=== PATIENT | female | born 2000 | race Hispanic/Latino ===

== ENCOUNTER 2024-03-28 21:16 | Emergency (ER) | payer BC, MEDICAID, OTHER ==
[~2024-03-28] VITALS: Ht 167.6 cm; Wt 124.7 kg
[2024-03-28 21:55] LABS: BASOPHILS # (AUTO) 0.06 K/uL (0.00-0.20); BASOPHILS % (AUTO) 0.6 % (0.0-5.0); EOSINOPHILS # (AUTO) 0.17 K/uL (0.00-0.70); EOSINOPHILS % (AUTO) 1.8 % (0.0-8.0); HEMATOCRIT 40.1 % (36-48); IMMATURE GRANULOCYTE ABSOLUTE 0.02 K/uL (0-1); LYMPHOCYTES # (AUTO) 4.1 K/uL (1.0-4.8); LYMPHOCYTES % (AUTO) 42.8 % (21.0-51.0); MEAN CORPUSCULAR HEMOGLOBIN 29.1 pg (27.0-33.0); MEAN CORPUSCULAR HGB CONC 32.9 g/dL (32.0-36.0); MEAN CORPUSCULAR VOLUME 88.5 fL (79-99); MONOCYTES # (AUTO) 0.9 K/uL (0.1-1.0); MONOCYTES % (AUTO) 9.4 % (3.0-13.0); NEUTROPHILS # (AUTO) 4.3 K/uL (1.8-7.7); NEUTROPHILS % (AUTO) 45.2 % (40.0-77.0); PLATELET COUNT (AUTO) 276 K/uL (130-400); RED BLOOD CELL COUNT(AUTO) 4.53 MIL/uL (4.00-5.50); WHITE BLOOD COUNT (AUTO) 9.5 K/uL (4.8-10.8)
[2024-03-28 22:04] LABS: POTASSIUM 4.5 mmol/L (3.5-5.1)
[2024-03-28 22:08] LABS: ALBUMIN 3.5 g/dL (3.5-5.0); BILIRUBIN,DIRECT 0.1 mg/dL (0.0-0.3); BILIRUBIN,TOTAL 0.3 mg/dL (0.2-1.0); TOTAL PROTEIN, SERUM 7.3 g/dL (6.0-8.3)
--- NOTE | 2024-03-28 22:12 | ERN ---
ED Note History of Present Illness Stated Complaint: CONSTIPATION AND STOMACH PAIN FOR 5 DAYS Time Seen by MD: 21:19 Time Seen by Midlevel: 21:19 Dictation: The patient is a 23-year-old female with no past medical history who presents to the emergency department with complaints of generalized abdominal pain, constipation for five days. Patient reports she had an episode of nonbloody vomiting last week but has not vomited since. Denies any fevers, nausea. Patient reports she took magnesium citrate and stool softeners with no relief. Last bowel movement was five days ago. Allergies: Coded Allergies: No Known Drug Allergies (Unverified Allergy, Unknown, 03/29/24) Home Meds Active Scripts Lactulose (Lactulose) 10 Gram/15 Ml Solution, 30 ML PO DAILY for constipation, #900 ML 0 Refills Prov:DASHИРИНА SAMANOLEN [facility] 03/29/24 Nitrofurantoin Monohyd/M-Cryst (Macrobid 100 mg Capsule) 100 Mg Capsule, 1 CAP PO BID for 5 Days, #10 CAP 0 Refills Prov:TRINA DASH [facility] 03/29/24 Past Medical History RN Note Reviewed/Agreed w/PFSH: Yes Review of System Dictation Constitutional: Negative for fever,chills, and weight loss Eyes: Negative for injury, pain,redness, and discharge ENT: Negative for injury,pain or swelling Cardiovascular: Negative for chest pain, palpitations, and edema Respiratory: Negative for shortness of breath, cough, and wheezing, Abdomen/GI: Negative for nausea, vomiting, diarrhea, positive for abdominal pain, constipation Back: Negative for injury and pain : Negative for injury, bleeding and discharge MS/Extremity: Negative for injury and deformity Skin: Negative for rash, and discoloration Neuro: Negative for headache, weakness, numbness, tingling, and seizure Psych: Negative for suicide ideation, homicidal ideation, and hallucinations Initial Vital Sign VS Vital Signs Date Time Temp Pulse Resp B/P (MAP) Pulse Ox O2 Delivery O2 Flow Rate FiO2 03/28/24 22:16 97.3 53 20 143/82 100 Room Air 03/29/24 00:27 0 21 Physical Exam Dictation Vital Signs reviewed General Appearance: Alert, oriented x 3, no acute distress, well developed, nourished. Head and Face: non-traumatic. Eyes: PERRL, pink conjunctivas, eyelid no trauma, anterior chamber with arcus senilis. Ears: Pinnas intact and no signs of trauma or erythema ear canals clear and no discharge TM no erythema Nose: No discharge, no bleeding. Oropharynx: Mouth normal, tongue pink. pharynx clear,no erythema, tonsils no exudates, no abscesses noted, mucous membrane moist Neck: Supple, non-tender, no thyromegaly, no masses, no JVD, no bruits Breast:Deferred Chest:No tenderness, no crepitus, no paradoxical movement, no retractions Lungs:Clear, well-ventilated, symmetric, no rales, no wheezing, no rhonchi, no stridor, good breath sounds bilaterally Heart: Regular rate, regular rhythm, no murmur, no gallops Vascular: no peripheral edema, Abdomen: Soft, positive bowel sounds, nondistended, no guarding, nontender, no rebound, no masses no hepatomegaly, no splenomegaly, no Son's sign, no hernias. Rectal: Deferred Genital: Deferred Neurological: Normal speech, motor function intact, sensory function intact Musculoskeletal: Neck nontender, full range of motion, back nontender, full range of motion, Extremities: nontender, full range of motion Skin: Color pink, dry, no turgor, no rash, no lacerations, no abrasions, no contusions. Lymphatic: Deferred Results (Laboratory/Radiology) Laboratory/Radiology Laboratory Tests Test 03/28/24 21:46 03/28/24 22:18 White Blood Count 9.5 K/uL (4.8-10.8) Red Blood Count 4.53 MIL/uL (4.00-5.50) Hemoglobin 13.2 g/dL (12.0-16.0) Hematocrit 40.1 % (36-48) Mean Corpuscular Volume 88.5 fL (79-99) Mean Corpuscular Hemoglobin 29.1 pg (27.0-33.0) Mean Corpuscular Hemoglobin Concent 32.9 g/dL (32.0-36.0) Red Cell Distribution Width 13.0 % (11.0-15.5) Platelet Count 276 K/uL (130-400) Mean Platelet Volume 10.4 fL (7.5-10.5) Immature Granulocyte % (Auto) 0.2 % (0-1) Neutrophils (%) (Auto) 45.2 % (40.0-77.0) Lymphocytes (%) (Auto) 42.8 % (21.0-51.0) Monocytes (%) (Auto) 9.4 % (3.0-13.0) Eosinophils (%) (Auto) 1.8 % (0.0-8.0) Basophils (%) (Auto) 0.6 % (0.0-5.0) Neutrophils # (Auto) 4.3 K/uL (1.8-7.7) Lymphocytes # (Auto) 4.1 K/uL (1.0-4.8) Monocytes # (Auto) 0.9 K/uL (0.1-1.0) Eosinophils # (Auto) 0.17 K/uL (0.00-0.70) Basophils # (Auto) 0.06 K/uL (0.00-0.20) Absolute Immature Granulocyte (auto 0.02 K/uL (0-1) Nucleated Red Blood Cells 0.0 % (0.0-0.19) Sodium Level 138 mmol/L (136-145) Potassium Level 4.5 mmol/L (3.5-5.1) Chloride Level 103 mmol/L (101-111) Carbon Dioxide Level 31 mmol/L (21-32) Blood Urea Nitrogen 16 mg/dL (7-18) Creatinine 1.0 mg/dL (0.5-1.0) Glomerular Filtration Rate Calc 81 mL/min (>90) Random Glucose 83 mg/dL (70-105) Total Calcium 8.7 mg/dL (8.5-10.1) Total Bilirubin 0.3 mg/dL (0.2-1.0) Direct Bilirubin 0.1 mg/dL (0.0-0.3) Aspartate Amino Transf (AST/SGOT) 10 U/L (10-37) Alanine Aminotransferase (ALT/SGPT) 20 U/L (12-78) Alkaline Phosphatase 68 U/L (50-136) Total Protein 7.3 g/dL (6.0-8.3) Albumin 3.5 g/dL (3.5-5.0) Lipase 61 U/L (16-77) Serum Test, Qualitative NEGATIVE (NEGATIVE) Urine Color YELLOW (YELLOW) Urine Appearance CLOUDY (CLEAR) H Urine pH 6.0 (5.0-8.0) Urine Specific [place] 1.042 (1.001-1.031) Urine Protein 30 mg/dL (NEGATIVE) H Urine Glucose (UA) NEGATIVE mg/dL (NEGATIVE) Urine Ketones 5 mg/dL (NEGATIVE) H Urine Occult Blood SMALL (NEGATIVE) H Urine Nitrate NEGATIVE (NEGATIVE) Urine Bilirubin NEGATIVE mg/dL (NEGATIVE) Urine Urobilinogen 2.0 mg/dL (0.2-1.0) H Urine Leukocyte Esterase 75 Diane/uL (NEGATIVE) H Urine RBC 2-5 /HPF (0-1) H Urine WBC 6-10 /HPF (0-1) H Urine Squamous Epithelial Cells MOD /HPF (0-2) Urine Bacteria RARE /HPF (None Seen) Labs Reviewed?: Yes ED Course ED Course Orders Procedure Category Date Status Time Cbc With Differential LAB 03/28/24 Complete 21:39 Urinalysis Profile LAB 03/28/24 Complete 21:39 Lipase LAB 03/28/24 Complete 21:39 Basic Metabolic Panel LAB 03/28/24 Complete 21:39 Hepatic Function Panel LAB 03/28/24 Complete 21:39 Abd 1vw RAD 03/28/24 Resulted 21:39 Acetaminophen 500mg PHA 03/28/24 Complete Tab (Tylenol 500mg T 22:00 Lactulose 20 Gm/30 Ml PHA 03/28/24 Complete Udcup (Constulose 22:00 Testing, LAB 03/28/24 Complete Serum Hcg 22:25 Culture Urine SANDRA 03/28/24 In Process 22:52 Ceftriaxone 1g Vial PHA 03/29/24 Complete (Rocephine 1g Inj) 00:30 Current Medications Medications (Trade) Dose Ordered Sig/Gary Route PRN Reason Start Time Stop Time Status Last Admin Dose Admin Acetaminophen (TYLenol 500MG TAB) 1,000 mg ONCE ONCE PO 03/28/24 22:00 03/28/24 22:01 DC 03/28/24 22:29 Ceftriaxone Sodium (ROCEphine 1G INJ) 1 gm ONCE ONCE IM 03/29/24 00:30 03/29/24 00:35 DC 03/29/24 00:38 Lactulose (Constulose 20gm/ 30ml Udcup) 20 gm ONCE ONCE PO 03/28/24 22:00 03/28/24 22:01 DC 03/28/24 22:29 Vital Signs Date Time Temp Pulse Resp B/P (MAP) Pulse Ox O2 Delivery O2 Flow Rate FiO2 03/29/24 00:59 97.7 61 18 132/76 100 Room Air* 0 21 03/29/24 00:27 97.7 61 18 138/76 98 Room Air* 0 21 03/28/24 22:16 97.3 53 20 143/82 100 Room Air Medical Decision Making MDM The patient is a 23-year-old female with no past medical history who presents to the emergency department with complaints of generalized abdominal pain, constipation for five days. Patient reports she had an episode of nonbloody vomiting last week but has not vomited since. Denies any fevers, nausea. Patient reports she took magnesium citrate and stool softeners with no relief. Last bowel movement was five days ago. CBC showed no leukocytosis, no anemia, chemistry showed no electrolyte imbalance, normal lipase, normal liver enzymes, urinalysis with leukocyte esterase. Patient was treated with Rocephin. Patient received lactulose in ER and reported a large bowel movement. Patient continues with a nontender abdomen. Will be discharged to follow up with PCP. Differential diagnosis: Constipation, bowel obstruction, electrolyte imbalance, dehydration Need for hospitalization: Patient does not meet criteria for hospitalization. There are no social concerns with this patient. DX & DISP Disposition: Discharge Departure Impression: Primary Impression: Constipation Additional Impression: UTI (urinary tract infection) Condition: Stable Scripts Lactulose (Lactulose) 10 Gram/15 Ml Solution 30 ML PO DAILY for constipation, #900 ML 0 Refills Prov: TRINA DASH [facility] 03/29/24 Nitrofurantoin Monohyd/M-Cryst (Macrobid 100 mg Capsule) 100 Mg Capsule 1 CAP PO BID for 5 Days, #10 CAP 0 Refills Prov: TRINA DASH [facility] 03/29/24 Referrals: DELPHINE VAUGHAN (PCP) Time of Disposition: 00:34 I have reviewed the case, and I agree with, Diagnosis and Plan ATTESTATION BY PHYSICIAN I PERFORMED THE SUBSTANTIVE PORTION OF THE VISIT. I HAVE REVIEWED AND PERSONALLY MADE AND APPROVED THE MANAGEMENT PLAN THAT IS DOCUMENTED IN THE NOTE BY MYSELF FOR THE A PP. I ACKNOWLEDGED FOR RESPONSIBILITY FOR THE PATIENT'S MANAGEMENT PLAN. TRINA DASH Mar 28, 2024 22:12 CLARA NEWTON MD Mar 30, 2024 05:05
[2024-03-28] MEDS: LACTULOSE 20 GM/30 ML UDCUP PO ONE (22:29)
[2024-03-28] MEDS: acetaMINOPHEN 500 MG TABLET PO ONE (22:29)
[2024-03-28 22:44] LABS: APPEARANCE,URINE CLOUDY (CLEAR); BILIRUBIN,URINE NEGATIVE (NEGATIVE); COLOR,URINE YELLOW (YELLOW); GLUCOSE, URINE (UA) NEGATIVE (NEGATIVE); KETONES,URINE 5 mg/dL (NEGATIVE); LEUKOCYTE ESTERASE ,URINE 75 Leu/uL (NEGATIVE); NITRATE,URINE NEGATIVE (NEGATIVE); OCCULT BLOOD,URINE SMALL (NEGATIVE); PROTEIN,URINE 30 mg/dL (NEGATIVE)
[2024-03-28 22:52] LABS: ADD UA MICROSCOPIC YES
[2024-03-28 22:59] LABS: BACTERIA,URINE RARE /HPF (None Seen); MUCUS,URINE MANY LPF (None Seen); SQUAMOUS EPITHELIAL CELL,UR MOD /HPF (0-2)
[2024-03-29] MEDS ORDERED: LACT10SO85 PO (00:35)
[2024-03-29] MEDS ORDERED: NITR100C4 PO (00:35)
[2024-03-29] MEDS: cefTRIAXone 1G VIAL IM ONE (00:38)
[2024-03-29 00:59] VITALS: BP 132/76; PULSE 61; RESP 18; TEMP 97.7; O2SAT 100
--- NOTE | 2024-03-29 08:41 | HMCIMG ---
ABD 1VW REASON: constipation FINDINGS: Single image of the abdomen was obtained. Bowel gas pattern is normal. Bones and soft tissues appear unremarkable. There are no abnormal calcifications. There is no evidence of foreign body. IMPRESSION: 1. Negative single view of the abdomen.
== END 2024-03-29 00:59 | disposition home or self-care (01) ==
LOC: EDH 21:16
DX: K59.00 Constipation, unspecified (principal); N39.0 Urinary tract infection, site not specified; Z79.899 Other long term (current) drug therapy
CPT/HCPCS: 99284; 80076; 80048; 84703; 83690; 85025; 87086; 81001; 36415; 74018; 96372; J0696

== ENCOUNTER 2024-05-21 11:43 | Emergency (ER) | payer BC ==
[~2024-05-21] VITALS: Ht 167.6 cm; Wt 123.4 kg
[~2024-05-21 11:43] MED LIST: LACT10SO85 PO; NITR100C4 PO
--- NOTE | 2024-05-21 12:45 | ERN ---
ED Note History of Present Illness Stated Complaint: RIGHT KNEE PAIN Chief Complaint: Knee Injury/Swelling Time Seen by MD: 12:05 Time Seen by Midlevel: 12:10 Dictation: 24-year-old female complaining of right knee pain for the past seven years. Patient states she was in the with a greater when she initially hurt it in the past couple of weeks it has been get it worse. Patient states she went to the PCP on and told her that she needed an MRI but they were having trouble with the insurance approving it. Denies any new injury to the knee Allergies: Coded Allergies: No Known Drug Allergies (Unverified Allergy, Unknown, 03/29/24) Home Meds Active Scripts Ketorolac Tromethamine (Ketorolac Tromethamine) 10 Mg Tablet, 1 TAB PO Q6HPRN PRN for pain for 5 Days, #20 TAB 0 Refills Prov:HARSH MALDONADO [employer] 05/21/24 Lactulose (Lactulose) 10 Gram/15 Ml Solution, 30 ML PO DAILY for constipation, #900 ML 0 Refills Prov:TRINA DASH [employer] 03/29/24 Nitrofurantoin Monohyd/M-Cryst (Macrobid 100 mg Capsule) 100 Mg Capsule, 1 CAP PO BID for 5 Days, #10 CAP 0 Refills Prov:TRINA DASH [employer] 03/29/24 Past Medical History Past Medical History: Unknown, Other Additional Past Medical Hx: CHRONIC RT KNEE PAIN Surgical History: None, Unknown LMP: May 07, 2024 Review of System Dictation Constitutional: Negative for fever,chills, and weight loss Eyes: Negative for injury, pain,redness, and discharge ENT: Negative for injury,pain or swelling Cardiovascular: Negative for chest pain, palpitations, and edema Respiratory: Negative for shortness of breath, cough, and wheezing, Abdomen/GI: Negative for abdominal pain, nausea, vomiting, diarrhea, and constipation Back: Negative for injury and pain : Negative for injury, bleeding and discharge MS/Extremity: Negative for injury and deformity ,right knee pain Skin: Negative for rash, and discoloration Neuro: Negative for headache, weakness, numbness, tingling, and seizure Psych: Negative for suicide ideation, homicidal ideation, and hallucinations Review of Systems: was completed Initial Vital Sign VS Vital Signs Date Time Temp Pulse Resp B/P (MAP) Pulse Ox O2 Delivery O2 Flow Rate FiO2 05/21/24 12:25 98.1 59 16 132/82 98 Room Air 0 05/21/24 14:05 21 Physical Exam Dictation General: awake, alert, NAD Head/Face: Normocephalic, atraumatic Eyes: PERRL, EOMI, vision at baseline ENT: oral cavity clear, TMs clear, no signs of infection Neck: Trachea midline, supple, no nuchal rigidity Cardiovascular: RRR, normal S1/S2, No MRGs, no JVD Respiratory: CTAB, no respiratory distress, No rales or wheezes Abdomen: Soft, non-tender, non-distended, normal bowel sounds, no guarding or rebound. Skin: Warm, dry, normal turgor, no rash MS/Extremity: Pulses equal, no cyanosis, neurovascular intact, FROM Neuro: COAx4, GCS 15, strength 5/5, CN 2-12 intact, normal cerebellar exam, normal gait, Psych: Normal behavior, mood, and affect normal ED Course ED Course Orders Procedure Category Date Status Time Knee 3vws Rt RAD 05/21/24 Resulted 12:23 Ketorolac PHA 05/21/24 Complete Tromethamine 15mg/Ml 12:23 Hydrocodone/Apap PHA 05/21/24 Complete 5/325 (Rico 5/325mg) 12:23 Current Medications Medications (Trade) Dose Ordered Sig/Gary Route PRN Reason Start Time Stop Time Status Last Admin Dose Admin Acetaminophen/ Hydrocodone Bitart (NORco 5/325MG) 1 tab ONCE STAT PO 05/21/24 12:23 05/21/24 12:25 DC 05/21/24 14:04 Ketorolac Tromethamine (toRADol) 15 mg ONCE STAT IM 05/21/24 12:23 05/21/24 12:25 DC 05/21/24 14:04 Vital Signs Date Time Temp Pulse Resp B/P (MAP) Pulse Ox O2 Delivery O2 Flow Rate FiO2 05/21/24 14:05 98.8 74 14 146/90 98 Room Air* 0 21 05/21/24 12:25 98.1 59 16 132/82 98 Room Air 0 Medical Decision Making MDM MDM: 24-year-old female complaining of right knee pain for the past seven years. Patient states she was in the with a greater when she initially hurt it in the past couple of weeks it has been get it worse. Patient states she went to the PCP on and told her that she needed an MRI but they were having trouble with the insurance approving it. Denies any new injury to the knee. X-ray shows no acute findings. Interpreted by me. Discussed patient to follow up with PCP in 1-2 days return to the ER as needed. Patient verbalized understanding, answered all questions. Differential diagnosis: Effusion of the joint, dislocation, arthritis Rationale: Tests considered and ordered secondary to shared decision making include: Previous outside records reviewed: Old ER visits. Risk of complication and/or morbidity or mortality of patient management: None Medications-Per medication reconciliation Need for hospitalization: Patient does not meet criteria for hospitalization. Need for emergency major/minor surgery: No There are no social concerns with this patient. Prescription drug management Prescriptions will include symptomatic care Patient's prior external medical records from other ER visits were reviewed by me as indicated. Prior testing and results from previous visits were reviewed. Prior tests were taken into account with medical decision making and resource utilization, independent historian/historians were used to obtain complete medical history. I independently interpreted the test that were performed, results were reviewed by me and considered findings on radiology if ordered. Medical management and examination interpretation discussions were had by me with other qualified healthcare professionals as indicated for the patient's care. DX & DISP Disposition: Discharge Departure Impression: Primary Impression: Knee pain, chronic Condition: Stable Scripts Ketorolac Tromethamine (Ketorolac Tromethamine) 10 Mg Tablet 1 TAB PO Q6HPRN PRN for pain for 5 Days, #20 TAB 0 Refills Prov: HARSH MALDONADO NP 05/21/24 Additional Instructions: follow up with your PCP in 1-2 days. return to er as needed. you can add tylenol for addition pain control . Referrals: DELPHINE VAUGHAN (PCP) Time of Disposition: 13:51 I have reviewed the case, and I agree with, Diagnosis and Plan I performed the substantive portion of the visit. I have reviewed and personally made and approve the management plan that is documented in the notes by myself or the VAL[facility]INA. I acknowledge full responsibility for the patient's management plan. HARSH MALDONADO NP May 21, 2024 12:45 MARCIE ODOM MD May 22, 2024 12:47
[2024-05-21] MEDS ORDERED: KETO10TA2 PO (13:52)
--- NOTE | 2024-05-21 14:03 | HMCIMG ---
KNEE 3VWS RT CLINICAL HISTORY: pain COMPARISON: None TECHNIQUE: AP lateral and oblique images were obtained. FINDINGS: No obvious fracture or dislocation. No joint effusion. The soft tissues appear unremarkable. No radiopaque foreign bodies. IMPRESSION: No acute findings.
[2024-05-21] MEDS: ketOROlac 15MG/ML VIAL (15MG/ML) IM STA (14:04)
[2024-05-21] MEDS: HYDROcodone/APAP 5/325 1 TAB TABLET PO STA (14:04)
[2024-05-21 14:05] VITALS: BP 146/90; PULSE 74; RESP 14; TEMP 98.8; O2SAT 98
== END 2024-05-21 14:26 | disposition home or self-care (01) ==
LOC: EDH 11:43
DX: G89.29 Other chronic pain (principal); M25.561 Pain in right knee; Z79.899 Other long term (current) drug therapy
CPT/HCPCS: 99284; 73562; 96372; J1885